=== PATIENT | male | born 1975 | race Caucasian/White ===

== ENCOUNTER 2023-05-02 11:00 | Emergency (ER) | payer OTHER, SELFPAY ==
[2023-05-02 11:17] VITALS: BP 178/70; PULSE 64; RESP 17; TEMP 36.7; O2SAT 98; BMI 23.3
--- NOTE | 2023-05-02 13:51 | ED.BACK ---
HPI - Back Pain/Injury <Yanci Gaviria PA-C - Last Filed: 05/02/23 19:24> General Chief Complaint: Back Pain/Injury Stated Complaint: severe lower back R side pain Time Seen by Provider: 05/02/23 13:51 Source: patient History of Present Illness HPI Narrative: 47-year-old male with history of left-sided sciatica presents with concern for right-sided low back pain radiating to his right leg severe since this morning. Patient states that last summer he had a problem on the left side of his low back has had x-rays and MRIs done and has had a few courses of steroids over the summer and fall has been seeing a primary care doctor through the [facility] on would be and recently got a referral to an orthopedic internal control specialist. Two days ago he was doing some gentle stretching and did some toe lifts, and some ?very vanilla squats that were not even complete squats about 25 of them and the next morning yesterday he woke up with some pain in his right buttock radiating into his right leg that was mild, he did some stretching and felt like he was okay yesterday but then this morning when he woke up his pain was so severe he could not get out of bed. He describes the pain as a constant aching tightness and pain shooting down into his leg on the right side mostly on the outside and back of his leg down towards the middle of his calf. He denies any numbness or weakness of that leg. He states this feels almost exactly the same as the problem he had last summer on the left side. He does not remember doing anything else that could have exacerbated or caused his symptoms besides the recent leg lifts, vanilla squats and gentle stretching. Patient states his pain has improved since this morning but he is concerned it will worsen and came into the ER today for assistance with medications for his symptoms. Denies any urinary symptoms, fevers, chills weakness or any other complaints or concerns. Related Data Previous Rx's Medication Instructions Recorded baclofen 10 mg tablet 10 mg PO TID 10 days #30 tabs 05/02/23 prednisone 20 mg tablet 40 mg (2 x 20 mg) PO DAILY 5 days 05/02/23 #10 tabs Allergies Allergy/AdvReac Type Severity Reaction Status Date / Time No Known Drug Allergies Allergy Verified 05/02/23 11:17 Review of Systems <Yanci Gaviria PA-C - Last Filed: 05/02/23 19:24> Review of Systems Narrative: See HPI Patient History <Yanci Gaviria PA-C - Last Filed: 05/02/23 19:24> Social History Smoking Status: Unknown if ever smoked Smoking Status: Unknown if ever smoked alcohol intake frequency: holidays/special occasions only Substance Use Type: does not use Exam <Yanci Gaviria PA-C - Last Filed: 05/02/23 19:24> Narrative Exam Narrative: GENERAL: [47] year old patient appears stated age. Well-developed patient, in mild distress. HEAD: Atraumatic. Normocephalic. EYES: Pupils equal round and reactive. Extraocular motions intact. No scleral icterus. No injection or drainage. ENT: Nose without bleeding, purulent drainage. Airway patent. NECK: Trachea midline. Non tender CARDIOVASCULAR: Regular rate and rhythm without murmurs, gallops, or rubs. RESPIRATORY: No increased work of breathing or respiratory distress. EXTREMITIES: No edema or joint tenderness. BACK: There is no midline spinous process tenderness, there is slight discomfort of the paraspinal muscles on the right low lumbar region, there is pain with palpation over the buttock at the sciatic nerve exit. There is no bruising noted. No deformity noted. Patient has positive straight leg raise at 25? on the right. He has increased back pain with active flexion of the knee on the right. Nontender without deformity or crepitance. No flank tenderness. NEURO: AOx3. SKIN: No rash or erythema of visible areas Initial Vital Signs Initial Vital Signs: Vital Signs Temperature 98.1 F 05/02/23 11:17 Pulse Rate 64 05/02/23 11:17 Respiratory Rate 17 05/02/23 11:17 Blood Pressure 178/70 H 05/02/23 11:17 Pulse Oximetry 98 05/02/23 11:17 Oxygen Delivery Method Room Air 05/02/23 11:17 <Giovanny Monge MD - Last Filed: 05/05/23 19:26> Initial Vital Signs Initial Vital Signs: Vital Signs Temperature 98.1 F 05/02/23 11:17 Pulse Rate 64 05/02/23 11:17 Respiratory Rate 17 05/02/23 11:17 Blood Pressure 178/70 H 05/02/23 11:17 Pulse Oximetry 98 05/02/23 11:17 Oxygen Delivery Method Room Air 05/02/23 11:17 Course <Yanci Gaviria PA-C - Last Filed: 05/02/23 19:24> Orders Ordered: Discontinued Medications Baclofen (Baclofen 10 Mg Tablet) 10 mg PO NOW ONE Stop: 05/02/23 14:07 Last Admin: 05/02/23 14:22 Dose: 10 mg Documented By: SHAKEEL Ketorolac Tromethamine (Ketorolac 30 Mg/Ml Vial) 30 mg IM NOW ONE Stop: 05/02/23 14:07 Last Admin: 05/02/23 14:21 Dose: 30 mg Documented By: SHAKEEL Vital Signs Vital signs: Vital Signs - 8 hr 05/02/23 14:33 Temperature 98.3 F Pulse Rate 67 Respiratory Rate 20 Blood Pressure 127/74 Pulse Oximetry 99 Oxygen Delivery Method Room Air <Giovanny Monge MD - Last Filed: 05/05/23 19:26> Orders Ordered: Discontinued Medications Baclofen (Baclofen 10 Mg Tablet) 10 mg PO NOW ONE Stop: 05/02/23 14:07 Last Admin: 05/02/23 14:22 Dose: 10 mg Documented By: SHAKEEL Ketorolac Tromethamine (Ketorolac 30 Mg/Ml Vial) 30 mg IM NOW ONE Stop: 05/02/23 14:07 Last Admin: 05/02/23 14:21 Dose: 30 mg Documented By: SHAKEEL Vital Signs Vital signs: Vital Signs - 8 hr 05/02/23 14:33 Temperature 98.3 F Pulse Rate 67 Respiratory Rate 20 Blood Pressure 127/74 Pulse Oximetry 99 Oxygen Delivery Method Room Air MDM - Back Pain/Injury <Yanci Gaviria PA-C - Last Filed: 05/02/23 19:24> Differential Diagnosis Differential diagnosis: Likely lumbar radiculopathy, sciatica and strain of lumbar region Medical Records Attestation: I reviewed the patient's medical records. Treatment and disposition Shared decision making:: Shared decision-making was used to determine the patient's plan for evaluation care in the emergency department today. MDM Narrative Medical decision making narrative: This is a generally well-appearing fairly healthy 47-year-old male who presents with concern for right-sided back and buttock pain low radiate into his right leg present for 2 days severe this morning to the point where he could not get out of bed. Feels similar to previous sciatic issues he has had on the left. Has already been referred to see orthopedic spine for ongoing left-sided issues. No known injury did do some exercises a few days ago that may have triggered this. Exam and history are consistent with sciatic nerve impingement/sciatica/some muscle spasming and patient is given baclofen p.o. as well as a Toradol shot IM today in the ER. We discussed options for control of symptoms and he understands that it is not ideal or appropriate to take steroids frequently but is interested in taking these again for short course to control his symptoms. He has had multiple doses of steroids over the past 8 months. Has previously had an MRI at another facility denies specific findings. Prescription for prednisone today as well as baclofen, patient declines lidocaine. Advised Tylenol ibuprofen for pain. Follow up closely with primary care and see orthopedic internal control specialist as planned. Discharge Plan Departure Patient Disposition: Home Clinical Impression: Sciatic leg pain Strain of lumbar region Qualifiers: Encounter type: initial encounter Qualified Code(s): S39.012A - Strain of muscle, fascia and tendon of lower back, initial encounter Instructions: DI for Back Pain With Sciatica Activity Restrictions/Additional Instructions: *You have been diagnosed with [right-sided sciatica, lumbar muscle strain] *What to do: *Please continue to take your regular medications as directed. [ 2] New medication prescriptions sent to your pharmacy: [Prednisone, baclofen] [ ] New medication written as a paper prescription [ ] No new medications given *Please follow up with your primary care provider in 2-3 days, call for an appointment. Let them know you were seen in the Emergency Department and that we ask that you be seen in follow up. We will electronically transmit a record of today's note if your PCP is in our system. I prescribed a different muscle relaxer for you today it is more of an antispasmodic but can be helpful for relaxing muscles please do not take this at the same time as any other muscle relaxers you have been prescribed. We gave you a shot of Toradol today in the emergency department and also the 1st dose of baclofen. We also did a prescription of prednisone for you after discussion. You have had multiple prednisone courses over the past 8 months or so so keep this in mind as it is definitely not something you want to be using long-term over time. Please follow up closely with primary care and get into see the orthopedic internal control specialist you have been referred to as soon as possible for further evaluation. Make sure you get re-evaluated if things are worsening, hope you feel better soon. *If you do not have a primary care provider please contact the [facility] Resource line at [phone]. They will ask some questions about your medical history and help get you set up with a doctor in the community. *Return to Emergency Department if you should have any new, worsening or concerning symptoms, such as [fever greater than 101 F, shaking chills, worsening pain, persistent vomiting or other bothersome symptoms] Prescriptions: New prednisone 20 mg tablet 40 mg PO DAILY 5 Days Qty: 10 0RF baclofen 10 mg tablet 10 mg PO TID 10 Days Qty: 30 0RF Stand Alone Forms: Patient Portal/API ED Sign-out <Giovanny Monge MD - Last Filed: 05/05/23 19:26> Cosign ED Attending Cosignature Attestation: I was immediately available in the department for consultation. ?This documentation has been reviewed and I agree with assessment and plan. Supervised by Giovanny Monge MD
[2023-05-02] MEDS: KETOROLAC 30 MG/ML VIAL IM (14:21)
[2023-05-02] MEDS: BACLOFEN 10 MG TABLET PO (14:22)
[2023-05-02 14:33] VITALS: BP 127/74; PULSE 67; RESP 20; TEMP 36.8; O2SAT 99
== END 2023-05-02 14:49 | disposition home or self-care (01) ==
PROVIDERS: Emergency Provider Student in an Organized Health Care Education/Training Program
DX: M54.41 Lumbago with sciatica, right side (principal); S39.012A Strain of muscle, fascia and tendon of lower back, initial encounter
CPT/HCPCS: 96372; 99283; J1885